=== PATIENT | female | born 1985 | race African-American/Black ===

== ENCOUNTER 2017-09-11 09:25 | Observation (INO) | payer MEDICAID ==
[~2017-09-11] VITALS: Ht 160 cm; Wt 54.9 kg
[2017-09-11] MEDS ORDERED: TERBUTALINE SULFATE 1 MG/ML 1ML VIAL SC ONE (10:32)
[2017-09-11] MEDS ORDERED: LACTATED RINGER'S 1,000 ML IV ONE (10:43)
[2017-09-11] MEDS ORDERED: TERBUTALINE SULFATE 1 MG/ML 1ML VIAL SC SCH (10:45)
== END 2017-09-11 13:20 | disposition home or self-care (01) | DRG 566 ==
LOC: LDRP 09:25
PROVIDERS: ADMIT Specialist; ATTEND Specialist
DX: O62.9 Abnormality of forces of labor, unspecified (principal); Z3A.34 34 weeks gestation of pregnancy
CPT/HCPCS: 59025; 81002; 96372; G0378; J3105

== ENCOUNTER 2017-10-11 10:45 | Observation (INO) | payer MEDICAID ==
[2017-10-11 11:21] LABS: Basophils # (auto) 0 uL; Basophils % (auto) 0.2 % (0.0-2.0); Eosinophils # (auto) 0.1 uL; Hematocrit 41.5 % (36.0-46.0); Hemoglobin 14.1 g/dL (12.2-16.2); Lymphocytes # (auto) 0.9 uL; Mean Corpuscular Hemoglobin 30.7 pg (28.0-32.0); Mean Corpuscular Volume 90.3 fL (80.0-100.0); Mean Platelet Volume 9.5 fL (6.9-10.8); Monocytes # (auto) 0.6 uL; Monocytes % (auto) 7.3 % (0.0-12.0); Neutrophils # (auto) 6.7 uL; Neutrophils % (auto) 80.5 % (37.0-80.0); Nucleated Red Blood Cells % 0.1 %; Platelet Count (auto) 253 10^3/uL (140-450); White Blood Cell 8.3 10^3/uL (4.4-10.8)
[2017-10-11 11:39] LABS: Albumin 3.2 g/dL (3.4-5.0); BUN/Creatinine Ratio 13.8; Bilirubin, Total 0.4 mg/dL (0.2-1.0); Calcium 8.8 mg/dL (8.5-10.1); Potassium 4.2 mmol/L (3.5-5.1); Total Protein 8.4 g/dL (6.4-8.2)
[2017-10-15] MEDS ORDERED: PREN-96 PO (16:53)
== END 2017-10-11 12:35 | disposition home or self-care (01) | DRG 566 ==
LOC: LDRP 10:45
PROVIDERS: ADMIT Specialist; ATTEND Specialist
DX: O62.9 Abnormality of forces of labor, unspecified (principal); Z3A.38 38 weeks gestation of pregnancy
CPT/HCPCS: 36415; 59025; 76805; 76818; 80053; 81002; 83036; 85025; 86592; G0378